=== PATIENT | male | born 1990 | race Caucasian/White ===

== ENCOUNTER 2019-08-03 19:48 | Emergency (ER) | payer OTHER ==
[~2019-08-03] VITALS: Ht 162.6 cm; Wt 81.8 kg
[2019-08-03 23:30] VITALS: BP 128/80
== END 2019-08-03 23:40 | disposition home or self-care (01) ==
LOC: EMS 19:48
DX: Z20.828 Contact with and (suspected) exposure to other viral communicable diseases (principal); Z11.59 Encounter for screening for other viral diseases
CPT/HCPCS: 99283; U0003